=== PATIENT | male | born 1955 | race Caucasian/White ===

== ENCOUNTER → 2018-06-08 16:49 | Day surgery (SDC) | payer BC ==
--- NOTE | 2012-03-23 06:22 | HP ---
HISTORY AND PHYSICAL: DATE OF ADMISSION/SURGERY: 03/30/12, by Dr. Maximilian GAMBLE CHIEF COMPLAINT: Left knee pain. HISTORY OF PRESENT ILLNESS: A 56-year-old male who injured his left knee playing soccer when he planted his foot, felt a pop, happened in September, has not gotten much better since after conservative course of treatment. He underwent an MRI scan which showed complex tear in the medial meniscus posterior horn, includes an oblique tear extending to the peripheral red zone with overlying spurring and intermediate grade chondromalacia. Also, some question of some ACL stretching. He is status post ACL reconstruction back in 2005. After the risks, benefits, and complications were discussed with the patient, he has elected to have a left knee arthroscopy by Dr. Maximilian Estes. PAST MEDICAL HISTORY: His primary care physician is Dr. Quita Liriano. He denies any liver, kidney, cardiac, or respiratory problems. PAST SURGICAL HISTORY: ACL reconstruction in [address] Estes. MEDICATIONS: Ibuprofen as needed. ALLERGIES: PENICILLIN, HE GOT WHEN HE WAS AN INFANT, HAD A QUESTIONABLE REACTION AND HAS NOT TAKEN IT SINCE. FAMILY HISTORY: Mother with scleroderma. Father with diabetes. Both are alive and doing well. SOCIAL HISTORY: He works at [employer] in [facility] [place]. He denies cigarette use. He has 1 to 2 alcoholic drinks a week. He is . REVIEW OF SYSTEMS: Eyes: The patient wears corrective lenses. Musculoskeletal : See HPI. Cardiac: Denies chest pain. Respiratory: Denies shortness of breath. GI: Denies any frequent heartburn. : Denies any urinary symptoms. General: Denies any fevers, chills, or night sweats. PHYSICAL EXAMINATION GENERAL: He is a pleasant male. VITAL SIGNS: He is 5 feet 11 inches and 145 pounds. His BMI is 20.2. Blood pressure 110/64 and pulse 64. HEENT: Head is normocephalic and atraumatic. Eyes: PERRLA. LUNGS: Clear to auscultation. CARDIAC: Regular rate and rhythm. No murmurs detected. ABDOMEN: Soft, nontender, and nondistended. PERIPHERAL VASCULAR: No peripheral edema noted. NEUROLOGIC: The patient is alert and oriented times 3. MUSCULOSKELETAL: Left knee: Tenderness over the mid posterior medial joint line. He has full extension and full flexion, but does complain of pain with Pebbles's but no palpable click. IMPRESSION: Medial meniscal tear, left knee. Status post anterior crucial ligament reconstruction in 2005. PLAN: The patient will be admitted on 03/30/12 for a left knee arthroscopy by Dr. Maximilian Estes. ANDRES KELSEY [id number] #: [id number] MTDD
[2012-03-30 11:53] VITALS: BP 115/66
--- NOTE | 2012-03-31 05:29 | OP ---
DATE OF OPERATION: 03/30/12 - [facility] DATE OF : 59 SURGEON: Maximilian Estes MD COLOR CONSULTANT: ANDRES Rmairez PRE-OP DIAGNOSIS: Left knee medial meniscus tear. POST-OP DIAGNOSIS: Left knee medial meniscus tear. OPERATIVE PROCEDURE: Left knee arthroscopy and partial medial meniscectomy. ESTIMATED BLOOD LOSS: Minimal. SPECIMEN: Meniscal tissue. FLUIDS: Routine. DRAINS: None. CONDITION: The patient tolerated the procedure well. BRIEF CLINICAL NOTE: Mr. Cabrera Erazo is a 56-year-old male with a long history of painful left knee, does not recall any specific antecedent trauma, however. The patient states that he believes he has injured his left knee playing soccer when he planted his foot and felt a pop in September 2011. The discomfort had not improved and due to the fact that after conservative intervention, his discomfort persisted. He underwent an MRI, which revealed a complex tear in the medial meniscus posterior horn, that was an oblique tear. His primary care physician is Dr. Quita Liriano. With the risks and benefits of operative versus nonoperative intervention thoroughly discussed with him, he was scheduled for surgical intervention in the form of a left knee arthroscopy and probable partial medial meniscectomy with meniscus repair, if indicated. PROCEDURE: The patient was seen in the preoperative holding area and I placed my initials on his left knee to indicate that the left knee was the correct knee. We then proceeded to the operative suite and prior to the start of procedure, a time-out was called. I again verified that the left knee was the correct knee and all necessary equipment for the procedure was available for my use. After anesthesia was administered, the standard arthroscopic portals were established. Inspection was first made of the suprapatellar pouch which was entirely within normal limits. I then looked at the lateral gutter and found it to be free of loose bodies. We then looked at the undersurface of the patella, and the patient had minimal patellofemoral chondrosis. We then looked at the medial gutter and found it to be free of loose bodies. Then, my hardware sales assistant, Dena Seals, helped me gain excellent exposure of the medial compartment by holding the knee in slight flexion and valgus, as I exploited the anterior horn, mid body, and posterior horn of the medial meniscus. Indeed , the patient did have a medial meniscus tear that was in the white-white zone. Therefore, a meniscus repair was not deemed appropriate. A partial medial meniscectomy was deemed appropriate. We then looked at the intercondylar notch and verified the anterior cruciate ligament graft was intact and there was vascularization proximal. This had been an Allograft. The posterior cruciate ligament was intact within its ligamentum mucosum and verified to be intact. Then, my hardware sales assistant, Dena Seals, helped me hold the leg in figure-of- four position, as I inspected the anterior horn, mid body, and posterior horn of the lateral meniscus and the lateral meniscus was intact in its entirety, as well as the lateral femoral condyle and lateral tibial plateau. Then, my hardware sales assistant, Dena Seals, helped me refocus on the medial compartment by holding the knee in slight flexion and valgus. With the use of arthroscopic vonda and biters, I debrided the aforementioned medial meniscus tear back to a stable margin. After which, we verified the remaining medial meniscus was stable, and did not displace into the joint. After which, I then again irrigated the knee copiously a final time. Then, withdrew the arthroscopic instrumentation, injected Marcaine for postoperative analgesia. Arthroscopic portal sites were closed with interrupted 3-0 Prolene in standard fashion. The patient was then awakened and transported off the operating room table, having standard dressings in place, having tolerated the procedure well. [id number]/CPS #: [id number] JACQUELINE
[~2018-06-08 16:49] MED LIST: Bupivacaine 0.5% W/EPI SDV* 30 ML VIAL ONE; CLINDAMYCIN ONE; Chloroprocaine 2%* 20 ML VIAL ONE; Dexamethasone IV* 4 MG/ML 1 ML (4 MG) ONE; Famotidine IV* 10 MG/ML 2 ML (20 mg) ONE; Ketorolac INJ* 30 MG/ML 1 ML VIAL ONE; Midazolam* 1 MG/ML 5 ML VIAL (5 MG) ONE; Ondansetron INJ* 2 MG/ML VIAL ONE; Propofol* 20 ML ONE; fentaNYL* 50 MCG/ML 2 ML VIAL (100 MCG VIAL) ONE; methylPREDNISolone ACETATE 40* 40 MG/ML 1 ML VIAL ONE; methylPREDNISolone ACETATE 80* 80 MG/ML 1 ML VIAL ONE
== END | disposition home or self-care (01) ==
LOC: OREAST 03-30 08:13
PROVIDERS: ATTEND Orthopaedic Surgery
DX: S83.242A Other tear of medial meniscus, current injury, left knee, initial encounter (principal); X50.0XXA Overexertion from strenuous movement or load, initial encounter; Y93.66 Activity, soccer; Y92.322 Soccer field as the place of occurrence of the external cause
CPT/HCPCS: 88304; J1100; J1885; J2250; J2400; J2405; J3010